=== PATIENT | male | born 1965 | race Caucasian/White ===

== ENCOUNTER 2018-07-26 07:21 | Day surgery (SDC) | payer OTHER ==
[2018-07-26] MEDS ORDERED: LR 1,000 ML IV ONE (07:34)
[2018-07-26] MEDS ORDERED: LIDOCAINE 1% 2 ML INJ ID PRN (07:34)
[2018-07-26] MEDS ORDERED: PROPOFOL/EMULSION 500 MG/50 ML BOTTLE IV ONE (08:32)
[2018-07-26] MEDS ORDERED: fentaNYL 100 MCG/2 ML INJ ONE (08:32)
[2018-07-26] MEDS ORDERED: LIDOCAINE 2% 5 ML SDV ONE (08:42)
--- NOTE | 2018-07-26 08:47 | PDANEPAE ---
ANE History of Present Illness HISTORY OF POLYPS, HERE FOR SCREENING COLONOSCOPY ANE Past Medical History - Cardiovascular History Hx Hypertension: Yes Hx Arrhythmias: No Hx Chest Pain: No Hx Coronary Artery / Peripheral Vascular Disease: No Hx CHF / Valvular Disease: No Hx Palpitations: No Cardiovascular History Comment: hyperlipidemia - Pulmonary History Hx COPD: No Hx Asthma/Reactive Airway Disease: Yes Hx Recent Upper Respiratory Infection: No Hx Oxygen in Use at Home: No Hx Sleep Apnea: Yes Sleep Apnea Screening Result - Last Documented: Positive Pulmonary History Comment: LATISHA positive, uses Cpap. exercise & cold induced asthma, uses albuterol PRN - Neurologic History Hx Cerebrovascular Accident: No Hx Seizures: No Hx Dementia: No - Endocrine History Hx Diabetes: No Endocrine History Comment: pre-diabetes/metabolic syndrome, using metformin and phentermine for control/weight loss - Renal History Hx Renal Disorders: No - Liver History Hx Hepatic Disorders: No - Neurological & Psychiatric Hx Hx Neurological and Psychiatric Disorders: No - Cancer History Hx Cancer: No - Congenital Disorder History Hx Congenital Disorders: No - GI History Hx Gastrointestinal Disorders: Yes Gastrointestinal History Comment: hx polyps - Other Health History Other Health History: wears glasses. polycythemia vera r/t testosterone use, donates blood to keep Hct <55 - Chronic Pain History Chronic Pain: Yes (right knee) - Surgical History Prior Surgeries: bilateral knee arthroscopy. left meniscectemy. right knee MCL , ACL repair. left hand debridement ANE Review of Systems Review of Systems: - Exercise capacity METS (RN): 4 METS ANE Patient History - Allergies Allergies/Adverse Reactions: No Known Allergies Allergy (Verified 07/11/18 14:13) - Home Medications Home Medications: Aleve 07/11/18 [Last Taken 07/23/18] Amlodipine Besylate 07/11/18 [Last Taken 07/25/18] Hydrochlorothiazide 07/11/18 [Last Taken 07/25/18] Lisinopril 07/11/18 [Last Taken 07/26/18 05:55] Metformin HCl 07/11/18 [Last Taken 07/25/18] Phentermine HCl 07/11/18 [Last Taken 07/25/18] Proventil Inhaler HFA (*) 07/11/18 [Last Taken 07/23/18] Simvastatin 07/11/18 [Last Taken 07/25/18] Testosterone IM 07/11/18 [Last Taken 07/25/18] Tylenol 07/11/18 [Last Taken 07/25/18] - NPO status NPO Since - Liquids (Date): 07/26/18 NPO Since - Liquids (Time): 05:52 NPO Since - Solids (Date): 07/24/18 NPO Since - Solids (Time): 09:00 - Smoking Hx Smoking Status: Former smoker - Family Anes Hx Family Hx Anesthesia Complications: none ANE Labs/Vital Signs - Vital Signs Blood Pressure: 151/92 Heart Rate: 78 Respiratory Rate: 18 O2 Sat (%): 94 Height: 187.96 cm Weight: 167.829 kg ANE Physical Exam - Airway Neck exam: FROM Mallampati Score: Class 4 Mouth exam: normal dental/mouth exam - Pulmonary Pulmonary: no respiratory distress - Cardiovascular Cardiovascular: regular rate and rhythym - ASA Status ASA Status: III (large neck circumference) ANE Anesthesia Plan Anesthesia Plan: GA w LMA, GA with mask Total IV Anesthesia: Yes
--- NOTE | 2018-07-26 09:17 | PDGENHP ---
History & Physical Chief Complaint: Colonoscopy surveillance History of Present Illness: 53 yo male with personal history of adenomatous colon polyps. Here for surveillance colonoscopy Pertinent Past, Social, Family History: Obesity. HTN. Arthritis. Hyperlipidemia. Personal history of colon polyps. SH: No tob or ETOH. FH: great grandmother with colon cancer Relevant Physical Exam: NAD. NC/AT. OP clear. CTA B/L. RRR without m/r/g. Obese. NT/ND. NABS. Cardiorespiratory Assessment: ASA III. Colonoscopy with MAC
[2018-07-26] MEDS ORDERED: NALOXONE HCL 0.4 MG/ML INJ IVP PRN (09:29)
[2018-07-26] MEDS ORDERED: ONDANSETRON 4 MG/2 ML VIAL IVP PRN (09:29)
[2018-07-26] MEDS ORDERED: LR 500 ML IV PRN (09:29)
[2018-07-26] MEDS ORDERED: MEPERIDINE 25 MG/0.5 ML AMP IVP PRN (09:29)
[2018-07-26] MEDS ORDERED: HYDROmorphONE/DILAUDID 2 MG/ML INJ IVP PRN (09:29)
[2018-07-26] MEDS ORDERED: fentaNYL 100 MCG/2 ML INJ IVP PRN (09:29)
--- NOTE | 2018-07-26 09:51 | GIREPORT ---
[facility] Surgical Services - Endoscopy Department Patient Name: Dorian Castillo Procedure Date: 07/26/2018 9:10 AM Patient Type: Outpatient Attending MD/ ER Physician: Manjinder Pryor MD Procedure: Colonoscopy Indications: High risk colon cancer surveillance: Personal history of colonic polyps Providers: Manjinder Pryor MD Medicines: Propofol per Anesthesia Complications: No immediate complications. Description of Procedure: After obtaining informed consent, the scope was passed under direct vis ion. Throughout the procedure, the patient's blood pressure, pulse, and oxyg en saturations were monitored continuously. The Colonoscope with irrigatio n channel was introduced through the anus and advanced to the cecum, identified by appendiceal orifice and ileocecal valve. The colonoscopy was performed without difficulty. The patient tolerated the procedure well. The quality of the bowel preparation was good. The ileocecal valve, appendi ceal orifice, and rectum were photographed. Findings: The perianal and digital rectal examinations were normal. Pertinent negatives include normal sphincter tone, no palpable rectal lesions and normal prostate (size, shape, and consistency). The entire examined colon appeared normal. Estimated Blood Loss: Estimated blood loss: none. Post Op Diagnosis: - The entire examined colon is normal. - No specimens collected. Recommendation: - Repeat colonoscopy in 5 years for surveillance. - Resume previous diet. - Continue present medications. - Patient has a contact number available for emergencies. The signs and symptoms of potential delayed complications were discussed with the pat ient. Return to normal activities tomorrow. Written discharge instructions we re provided to the patient. - Thank you for allowing me to be involved in the care of your patient. Attending Participation: I personally performed the entire procedure without the assistance of a fellow, resident or surg ical per diem physical therapist assistant. Manjinder Pryor MD Manjinder Pryor MD 07/26/2018 9:51:04 AM This report has been signed electronicallyDavid MD Roya Number of Addenda: 0 Note Initiated On: 07/26/2018 9:10 AM [email or web address]
--- NOTE | 2018-07-26 10:36 | POSTANESTH ---
Post Anesthetic Evaluation Cardiovascular Status: Normal, Stable Respiratory Status: Normal, Stable Level of Consciousness/Mental Status: Can Participate in Eval Pain Control: Adequate, Prn Tx Ordered Nausea/Vomiting Control: Adequate, Prn Tx Ordered Complications Possibly Related to Anesthesia: None Noted
[2018-07-26 10:40] VITALS: BP 124/82
== END 2018-07-26 10:45 | disposition home or self-care (01) ==
LOC: FSGY 07:21
PROVIDERS: ATTEND Internal Medicine Gastroenterology
PROC: 0DJD8ZZ Inspection of Lower Intestinal Tract, Via Natural or Artificial Opening Endoscopic (ICD-10-PCS; principal; 2018-07-26 09:00)
DX: Z86.010 Personal history of colon polyps (principal)
CPT/HCPCS: J2704; J3010